=== PATIENT | male | born 1965 ===

== ENCOUNTER 2021-04-03 00:28 | Emergency (ER) | payer OTHER, SELFPAY ==
[2021-04-03 01:57] LABS: Absolute Lymphocytes (CBC) 2.1 K/uL (0.7-4.9); Basophils % 0.7 % (0-1.3); Hematocrit 41.1 % (39.6-49.0); MPV 9.1 fL (7.6-11.3); RBC Red Blood Cell Count 4.74 M/uL (4.33-5.43)
[2021-04-03 01:59] LABS: Protime INR 0.91
[2021-04-03 02:14] LABS: ALT/SGPT 31 U/L (12-78); AST/SGOT 20 U/L (15-37); Albumin 3.8 g/dL (3.4-5.0); Alkaline Phosphatase 79 U/L (45-117); BUN Blood Urea Nitrogen 25 mg/dL (7-18); Bicarbonate 30 mmol/L (21-32); Bilirubin Direct 0.2 mg/dL (0-0.2); Bilirubin Total 0.6 mg/dL (0.2-1.0); Glucose Level 95 mg/dL (74-106); Magnesium 1.9 mg/dL (1.8-2.4); NT PRO-BNP 265 pg/mL (<125); Potassium 4.3 mmol/L (3.5-5.1); Protein, Total 7.6 g/dL (6.4-8.2); Sodium Level 141 mmol/L (136-145); Troponin (Emerg Dept Use Only) < 0.02 ng/mL (0.0-0.045)
[2021-04-03 04:18] LABS: BUN Blood Urea Nitrogen 24 mg/dL (7-18); Bicarbonate 29 mmol/L (21-32); Glucose Level 90 mg/dL (74-106); Potassium 3.9 mmol/L (3.5-5.1); Sodium Level 141 mmol/L (136-145); Troponin (Emerg Dept Use Only) < 0.02 ng/mL (0.0-0.045)
--- NOTE | 2021-04-03 04:53 | ER ---
Nurse's Notes [facility] Name: Dustin Goodwin Age: 55 yrs Sex: Male : 1965 Arrival Date: 04/03/2021 Time: 00:32 Bed 3 Private MD: Diagnosis: Chest psin Presentation: 04/03 01:32 Chief complaint: Patient states: chest pain, shortness of breath, and headache that em started at 10 PM, reports having the first Pfizer vaccine 1 day ago, no symptoms at this time. Coronavirus screen: Client denies travel out of the [place] in the last 14 days. Ebola Screen: Patient negative for fever greater than or equal to 101.5 degrees Fahrenheit, and additional compatible Ebola Virus Disease symptoms Patient denies exposure to infectious person. Patient denies travel to an Ebola-affected area in the 21 days before illness onset. No symptoms or risks identified at this time. Initial Sepsis Screen: Does the patient meet any 2 criteria? No. Patient's initial sepsis screen is negative. Does the patient have a suspected source of infection? No. Patient's initial sepsis screen is negative. Risk Assessment: Do you want to hurt yourself or someone else? Patient reports no desire to harm self or others. Onset of symptoms was April 03, 2021. 01:32 Method Of Arrival: Wheelchair em 01:32 Acuity: SHADI 3 em Triage Assessment: 02:32 General: Appears in no apparent distress. Behavior is calm, cooperative. Pain: Denies ak2 pain. Neuro: No deficits noted. Cardiovascular: No deficits noted. Respiratory: No deficits noted. Historical: - Allergies: 01:33 No Known Allergies; em - PMHx: 01:33 Hypertensive disorder; em - PSHx: 01:33 None; em - Immunization history:: Client reports receiving the 1st dose of the Covid vaccine, April 02, 2021. - Social history:: Smoking status: Patient denies any tobacco usage or history of. Screenin:32 Abuse screen: Denies threats or abuse. Denies injuries from another. Nutritional ak2 screening: No deficits noted. Tuberculosis screening: No symptoms or risk factors identified. Fall Risk None identified. Assessment: 02:34 Pain: Pain does not radiate. Pain began 1 day ago. ak2 02:34 Reassessment: Patient and/or family updated on plan of care and expected duration. Pain ak2 level reassessed. 04:08 Reassessment: Patient and/or family updated on plan of care and expected duration. Pain ak2 level reassessed. Vital Signs: 01:32 BP 153 / 77; Pulse 54; Resp 16; Temp 97.7; Pulse Ox 100% on R/A; Weight 72.57 kg; em Height 5 ft. 3 in. (160.02 cm); Pain 0/10; 02:32 BP 137 / 71; Pulse 61; Resp 18; Pulse Ox 98% on R/A; ak2 04:08 BP 125 / 60; Pulse 55; Resp 16; Pulse Ox 18% on R/A; ak2 01:32 Body Mass Index 28.34 (72.57 kg, 160.02 cm) em ED Course: 00:32 Patient arrived in ED. ag3 01:25 Quinton Rodríguez MD is Attending Physician. pkl 01:33 Triage completed. em 01:33 Arm band placed on. em 01:47 XRAY Chest (1 view) In Process Unspecified. EDMS 02:32 Patient has correct armband on for positive identification. court recording monitor on. Pulse ak2 ox on. NIBP on. 02:32 No provider procedures requiring assistance completed. Inserted saline lock: 20 gauge ak2 in right antecubital area, using aseptic technique. Patient maintains SpO2 saturation greater than 95% on room air. Administered Medications: 02:45 Drug: NS 0.9% 1000 ml Route: IV; Rate: 1000 ml; Site: right antecubital; ak2 Outcome: 04:52 Discharge ordered by . pkl 05:29 Discharged to home ambulatory. ak2 05:29 Condition: good 05:29 Discharge instructions given to patient, Prescriptions given X 05:29 Patient left the ED. ak2 Signatures: Dispatcher [employer] EDMS Quinton Rodríguez MD MD pkEdvin De León RN RN Olivia Snyder [facility] Yvon Tesfaye ak2 Corrections: (The following items were deleted from the chart) 01:34 01:33 PMHx: None; em em
--- NOTE | 2021-04-03 04:53 | EDPHYS ---
Physician Documentation [facility] Name: Dustin oGodwin Age: 55 yrs Sex: Male : 1965 Arrival Date: 04/03/2021 Time: 00:32 Bed 3 Private MD: ED Physician Quinton Rodríguez HPI: 04/03 02:14 This 55 yrs old Male presents to ER via Wheelchair with complaints of Chest Pain, pkl Shortness Of Breath, Headache. 02:14 The patient or guardian reports chest pain that is located primarily in the substernal pkl area. Onset: just prior to arrival, 4 hour(s) ago. The pain does not radiate. Associated signs and symptoms: Pertinent positives: headache, shortness of breath. The chest pain is described as tightness. The patient has experienced a previous episode, approximately 20 years ago. Historical: - Allergies: 01:33 No Known Allergies; em - PMHx: 01:33 Hypertensive disorder; em - PSHx: 01:33 None; em - Immunization history:: Client reports receiving the 1st dose of the Covid vaccine, April 02, 2021. - Social history:: Smoking status: Patient denies any tobacco usage or history of. ROS: 02:14 Eyes: Negative for injury, pain, redness, and discharge, ENT: Negative for injury, pkl pain, and discharge, Neck: Negative for injury, pain, and swelling. 02:14 Cardiovascular: Positive for chest pain. 02:14 Respiratory: Positive for shortness of breath. 02:14 Abdomen/GI: Negative for abdominal pain, nausea, vomiting, and diarrhea. 02:14 Back: Negative for acute changes. 02:14 : Negative for urinary symptoms. 02:14 MS/extremity: Negative for acute changes. 02:14 Skin: Negative for rash. 02:14 Neuro: Positive for headache. Exam: 02:14 Head/Face: Normocephalic, atraumatic. Eyes: Pupils equal round and reactive to light, pkl extra-ocular motions intact. Lids and lashes normal. Conjunctiva and sclera are non-icteric and not injected. Cornea within normal limits. Periorbital areas with no swelling, redness, or edema. ENT: Nares patent. No nasal discharge, no septal abnormalities noted. Tympanic membranes are normal and external auditory canals are clear. Oropharynx with no redness, swelling, or masses, exudates, or evidence of obstruction, uvula midline. Mucous membranes moist. Neck: Trachea midline, no thyromegaly or masses palpated, and no cervical lymphadenopathy. Supple, full range of motion without nuchal rigidity, or vertebral point tenderness. No Meningismus. Chest/axilla: Normal chest wall appearance and motion. Nontender with no deformity. No lesions are appreciated. Cardiovascular: Regular rate and rhythm with a normal S1 and S2. No gallops, murmurs, or rubs. Normal PMI, no JVD. No pulse deficits. Respiratory: Lungs have equal breath sounds bilaterally, clear to auscultation and percussion. No rales, rhonchi or wheezes noted. No increased work of breathing, no retractions or nasal flaring. Abdomen/GI: Soft, non-tender, with normal bowel sounds. No distension or tympany. No guarding or rebound. No evidence of tenderness throughout. Back: No spinal tenderness. No costovertebral tenderness. Full range of motion. Skin: Warm, dry with normal turgor. Normal color with no rashes, no lesions, and no evidence of cellulitis. MS/ Extremity: Pulses equal, no cyanosis. Neurovascular intact. Full, normal range of motion. Neuro: Awake and alert, GCS 15, oriented to person, place, time, and situation. Cranial nerves II-XII grossly intact. Motor strength 5/5 in all extremities. Sensory grossly intact. Cerebellar exam normal. Normal gait. Vital Signs: 01:32 BP 153 / 77; Pulse 54; Resp 16; Temp 97.7; Pulse Ox 100% on R/A; Weight 72.57 kg; em Height 5 ft. 3 in. (160.02 cm); Pain 0/10; 02:32 BP 137 / 71; Pulse 61; Resp 18; Pulse Ox 98% on R/A; ak2 04:08 BP 125 / 60; Pulse 55; Resp 16; Pulse Ox 18% on R/A; ak2 01:32 Body Mass Index 28.34 (72.57 kg, 160.02 cm) em MDM: 01:25 Patient medically screened. pkl 04:48 Data reviewed: vital signs, nurses notes, lab test result(s), EKG, radiologic studies, pkl plain films. ED course: Patient feeling better. Discussed lab, EKG and imaging studies with patient. Advised to follow up with his PCP/ [facility] for further evaluations in 2 to 3 days. Patient understood instructions. 04/03 01:32 Order name: Basic Metabolic Panel; Complete Time: 02:23 em 04/03 01:32 Order name: CBC with Diff; Complete Time: 02:23 em 04/03 01:32 Order name: LFT's; Complete Time: 02:23 em 04/03 01:32 Order name: Magnesium; Complete Time: 02:23 em 04/03 01:32 Order name: NT PRO-BNP; Complete Time: 02:23 em 04/03 01:32 Order name: Troponin (emerg Dept Use Only); Complete Time: 02:23 em 04/03 01:32 Order name: XRAY Chest (1 view) em 04/03 01:32 Order name: EKG; Complete Time: 01:32 em 04/03 01:42 Order name: D-Dimer; Complete Time: 02:23 pkl 04/03 01:52 Order name: Protime (+INR); Complete Time: 02:23 EDMS 04/03 02:40 Order name: Troponin (emerg Dept Use Only); Complete Time: 04:47 pkl 04/03 02:40 Order name: Chem 7; Complete Time: 04:47 pkl 04/03 01:32 Order name: Cardiac monitoring em 04/03 01:32 Order name: EKG - Nurse/Tech em 04/03 01:32 Order name: IV Saline Lock 04/03 01:32 Order name: Labs collected and sent 04/03 01:32 Order name: O2 Per Protocol 04/03 01:32 Order name: O2 Sat Monitoring 04/03 02:40 Order name: EKG; Complete Time: 02:41 pkl Administered Medications: 02:45 Drug: NS 0.9% 1000 ml Route: IV; Rate: 1000 ml; Site: right antecubital; ak2 Disposition Summary: 04/03/21 04:52 Discharge Ordered Location: Home pkl Problem: new pkl Symptoms: have improved pkl Condition: Stable pkl Diagnosis - Chest psin pkl Followup: pkl - With: Private Physician - When: 2 - 3 days - Reason: Re-evaluation by your physician Forms: - Medication Reconciliation Form pkl - Thank You Letter pkl - Antibiotic Education pkl - Prescription Opioid Use pkl Signatures: Dispatcher [employer] EDQuinton Doan MD MD pkl Edvin Ramirez, RN RN em Yvon Tesfaye Corrections: (The following items were deleted from the chart) 01:34 01:33 PMHx: None; em em 01:52 01:32 PROTIME (+INR)+COAG.LAB.BRZ ordered. EDMS EDMS
[2021-04-03 05:42] VITALS: TEMP 97.7
[2021-04-03 05:44] VITALS: BP 125/60; O2SAT 18
--- NOTE | 2021-04-03 07:27 | RAD REPORT ---
EXAM DESCRIPTION: RAD - Chest Single View - 04/03/2021 1:47 am CLINICAL HISTORY: CHEST PAIN COMPARISON: No comparisons FINDINGS: No evidence of edema or pneumonia. The heart size is within normal limits.No acute osseous abnormality. No significant pleural effusions or pneumothorax. IMPRESSION: No acute cardiopulmonary disease.
== END 2021-04-03 05:29 | disposition home or self-care (01) ==
LOC: ER 00:28
DX: R07.9 Chest pain, unspecified (principal); I10 Essential (primary) hypertension
CPT/HCPCS: 36415; 71045; 80048; 80076; 83735; 83880; 84484; 85025; 85379; 85610; 93005; 99285